=== PATIENT | female | born 1970 | race Caucasian/White ===

== ENCOUNTER 2024-06-13 01:10 | Emergency (ER) | payer OTHER ==
[~2024-06-13] VITALS: Ht 162.6 cm; Wt 92.5 kg
[2024-06-13 01:24] VITALS: BP 155/79; PULSE 82; RESP 16; TEMP 97.3; O2SAT 99
[2024-06-13 03:20] LABS: APPEARANCE,URINE CLEAR (CLEAR); BILIRUBIN,URINE NEGATIVE (NEGATIVE); BLOOD, URINE NEGATIVE (NEGATIVE); COLOR,URINE YELLOW (YELLOW); LEUKOCYTE ESTERASE ,URINE NEGATIVE (NEGATIVE); NITRITE, URINE NEGATIVE (NEGATIVE); PROTEIN,URINE NEGATIVE (NEGATIVE); UGLUCOSE NEGATIVE (NEGATIVE); UROBILINOGEN,URINE 0.2 EU/dL (0.2 - 1)
[2024-06-13 04:05] VITALS: BP 161/82; PULSE 75; RESP 16; TEMP 97.3; O2SAT 99
== END 2024-06-13 04:05 | disposition home or self-care (01) ==
LOC: MED 01:10
DX: I10 Essential (primary) hypertension (principal)
CPT/HCPCS: 81003; 93005; 99284